=== PATIENT | male | born 1950 | race Caucasian/White ===

== ENCOUNTER 2023-11-23 12:41 | Inpatient (IN) | payer MEDICARE ==
[~2023-11-23] VITALS: Ht 180.3 cm; Wt 81.1 kg
[2023-11-23 14:43] LABS: Basophils # (auto) 0.1 10 ^3/uL (0-0.2); Basophils % (auto) 0.5 % (0.0-2.0); Eosinophils # (auto) 0.2 10 ^3/uL (0-0.8); Eosinophils % (auto) 1.3 % (0.0-7.0); Hematocrit 40.7 % (41.0-53.0); Hemoglobin 13.5 g/dL (13.5-17.5); Lymphocytes # (auto) 1.3 10 ^3/uL (0.4-5.4); Lymphocytes % (auto) 10.6 % (10.0-50.0); Mean Corpuscular Hemoglobin 30.5 pg (28.0-32.0); Mean Corpuscular Hgb Conc. 33.2 g/dL (32.0-36.0); Mean Corpuscular Volume 91.7 fL (80.0-100.0); Monocytes % (auto) 7.8 % (0.0-12.0); Neutrophils % (auto) 79.8 % (37.0-80.0); Red Blood Cells 4.44 10^6/uL (4.5-5.90); White Blood Cell 12.5 10^3/uL (4.4-10.8)
[2023-11-23 14:52] LABS: Chloride 105 mmol/L (98-107); Potassium 4.6 mmol/L (3.5-5.1); Sodium 137 mmol/L (136-145)
[2023-11-23 14:53] LABS: Anion Gap 6 (5-15); Carbon Dioxide 26 mmol/L (20-30)
[2023-11-23 14:54] LABS: Calcium 9.2 mg/dL (8.7-10.4)
[2023-11-23 14:58] LABS: BUN/Creatinine Ratio 22.1 (10.0-20.0); Blood Urea Nitrogen 34 mg/dL (9-23); Glucose 110 mg/dL (74-106)
[2023-11-23] MEDS: cloNIDine HCL 0.1 MG TAB PO ONE (18:13)
[2023-11-23] MEDS: ENOXAPARIN SOD 40 MG/0.4 ML SYRINGE SC ONE (18:22)
[2023-11-23 19:01] LABS: Urine Bacteria None Seen /hpf (None Seen)
[2023-11-23 19:25] LABS: Urine Blood Negative /uL (Negative); Urine Clarity Clear (Clear); Urine Color Yellow (Yellow); Urine Hyaline Cast FEW /lpf (0 - 2); Urine Mucus FEW (None Seen); Urine Protein, UAD TRACE (Negative); Urine Specific Gravity 1.025 (1.001-1.035); Urine Urobilinogen Normal (Negative); Urine WBC 9 /hpf (0 - 3)
[2023-11-23] MEDS: HYDROmorphone HCL 2 MG/ML VL/or syr IM ONE (21:03)
[2023-11-23] MEDS ORDERED: ACETAMINOPHEN 325 MG TAB PO PRN (23:15)
[2023-11-23] MEDS ORDERED: ONDANSETRON HCL 4 MG/2 ML VIAL IV PRN (23:15)
[2023-11-24] VITALS (8 sets, daily range): BP systolic 133–156; BP diastolic 86–92; PULSE 59–85; RESP 17–20; TEMP 97.6–98.6; O2SAT 95–99
[2023-11-24] MEDS ORDERED: MORPHINE SULFATE INJ 2 MG/ml SYRG IV PRN
[2023-11-24] MEDS ORDERED: NITROGLYCERIN 0.4 MG SL TAB SL PRN
[2023-11-24] MEDS: HYDROcodone-ACET 5/325MG TAB PO PRN (01:31)
[2023-11-24] MEDS: cefTRIAXone 1GM/50ML D5W 50 ML IV ONE (02:15)
[2023-11-24] MEDS: SODIUM CHLOR 0.9% PF (SALINE LOCK) 10ML VIAL/SYR IV SCH (04:17)
[2023-11-24 07:36] LABS: Basophils # (auto) 0.1 10 ^3/uL (0-0.2); Basophils % (auto) 0.7 % (0.0-2.0); Eosinophils # (auto) 0.3 10 ^3/uL (0-0.8); Hematocrit 37.7 % (41.0-53.0); Hemoglobin 12.8 g/dL (13.5-17.5); Lymphocytes # (auto) 1.8 10 ^3/uL (0.4-5.4); Lymphocytes % (auto) 16.7 % (10.0-50.0); Mean Corpuscular Hemoglobin 31.4 pg (28.0-32.0); Mean Corpuscular Volume 92.3 fL (80.0-100.0); Monocytes # (auto) 1.1 10 ^3/uL (0-1.3); Monocytes % (auto) 10.1 % (0.0-12.0); Neutrophils # (auto) 7.6 10 ^3/uL (1.6-8.6); Neutrophils % (auto) 69.5 % (37.0-80.0); Nucleated Red Blood Cells % 0.1 %; Red Blood Cells 4.08 10^6/uL (4.5-5.90); Red Cell Distribution Width 12.8 % (11.8-14.3); White Blood Cell 10.9 10^3/uL (4.4-10.8)
[2023-11-24 07:46] LABS: Alanine Aminotransferase 15 U/L (7-40); Albumin 3.9 g/dL (3.2-4.8); Alkaline Phosphatase 65 U/L (46-116); Anion Gap 10 (5-15); Aspartate Aminotransferase 25 U/L (13-40); BUN/Creatinine Ratio 19.3 (10.0-20.0); Blood Urea Nitrogen 28 mg/dL (9-23); Calcium 9.1 mg/dL (8.5-10.1); Carbon Dioxide 23 mmol/L (20-30); Chloride 102 mmol/L (98-107); Glucose 98 mg/dL (74-106); Potassium 4.5 mmol/L (3.5-5.1); Sodium 135 mmol/L (136-145)
[2023-11-24 07:47] LABS: Bilirubin, Total 0.5 mg/dL (0.2-1.0); Total Protein 5.9 g/dL (5.7-8.2)
[2023-11-24] MEDS ORDERED: CHLO0.12 PO (07:53)
[2023-11-24] MEDS ORDERED: AMLO1TAB22 PO (07:53)
[2023-11-24] MEDS ORDERED: HYDR50TA47 PO (07:53)
[2023-11-24] MEDS ORDERED: BACL10TA PO (07:53)
[2023-11-24] MEDS ORDERED: ROSU20TA56 PO (07:53)
[2023-11-24] MEDS ORDERED: RIV20T PO (07:53)
[2023-11-24] MEDS ORDERED: OLME40TA76 PO (07:53)
[2023-11-24] MEDS ORDERED: METO25TA93 PO (07:53)
[2023-11-24] MEDS ORDERED: NIFE1TAB31 PO ×2 (07:53)
[2023-11-24] MEDS ORDERED: TRAZ-227 PO (07:53)
[2023-11-24] MEDS ORDERED: SPIR25TA8 PO (07:53)
[2023-11-24] MEDS ORDERED: HYD1TP TOP (09:24)
[2023-11-24] MEDS ORDERED: CEFD300C2 PO (09:24)
[2023-11-24] MEDS ORDERED: APIXABAN 5 MG TAB PO SCH (10:00)
[2023-11-24] MEDS: FAMOTIDINE (10MG/ML) 2ML VL IV SCH (10:00)
[2023-11-24] MEDS: METOPROLOL TARTRATE 25 MG TAB PO SCH (10:00)
[2023-11-24] MEDS: SPIRONOLACTONE 25 MG TAB PO SCH (10:15)
[2023-11-24] MEDS: cefTRIAXone 1GM/50ML D5W 50 ML IV SCH (11:25)
[2023-11-24] MEDS: hydrALAZINE HCL 20 MG/ML VL IV PRN (12:25)
[2023-11-24] MEDS: hydrALAZINE HCL 25 MG TAB PO SCH (21:46)
[2023-11-24] MEDS: amLODIPine BESYLATE 5 MG TAB PO SCH (21:46)
[2023-11-24] MEDS: ATORVASTATIN 20 MG TAB PO SCH (21:46)
[2023-11-24] MEDS: BACLOFEN 10 MG TAB PO SCH (21:46)
[2023-11-24] MEDS: traZODone HCL 50 MG TAB PO SCH (21:47)
[2023-11-25] VITALS (8 sets, daily range): BP systolic 102–155; BP diastolic 51–90; PULSE 57–98; RESP 17–20; TEMP 97.1–98.2; O2SAT 93–99
[2023-11-25 07:04] LABS: Basophils # (auto) 0.1 10 ^3/uL (0-0.2); Basophils % (auto) 0.7 % (0.0-2.0); Eosinophils # (auto) 0.3 10 ^3/uL (0-0.8); Eosinophils % (auto) 3.4 % (0.0-7.0); Hematocrit 38.2 % (41.0-53.0); Hemoglobin 13.1 g/dL (13.5-17.5); Lymphocytes # (auto) 1.6 10 ^3/uL (0.4-5.4); Lymphocytes % (auto) 17.3 % (10.0-50.0); Mean Corpuscular Hemoglobin 31.1 pg (28.0-32.0); Mean Corpuscular Hgb Conc. 34.2 g/dL (32.0-36.0); Mean Corpuscular Volume 91.1 fL (80.0-100.0); Monocytes # (auto) 0.8 10 ^3/uL (0-1.3); Monocytes % (auto) 9.3 % (0.0-12.0); Neutrophils # (auto) 6.3 10 ^3/uL (1.6-8.6); Neutrophils % (auto) 69.3 % (37.0-80.0); Nucleated Red Blood Cells % 0.1 %; Red Blood Cells 4.19 10^6/uL (4.5-5.90); Red Cell Distribution Width 12.6 % (11.8-14.3); White Blood Cell 9.1 10^3/uL (4.4-10.8)
[2023-11-25 07:24] LABS: Alanine Aminotransferase 15 U/L (7-40); Albumin 3.9 g/dL (3.2-4.8); Alkaline Phosphatase 66 U/L (46-116); Anion Gap 9 (5-15); Aspartate Aminotransferase 24 U/L (13-40); BUN/Creatinine Ratio 17.3 (10.0-20.0); Blood Urea Nitrogen 24 mg/dL (9-23); Calcium 9.1 mg/dL (8.5-10.1); Carbon Dioxide 25 mmol/L (20-30); Chloride 103 mmol/L (98-107); Glucose 93 mg/dL (74-106); Potassium 4.7 mmol/L (3.5-5.1); Sodium 137 mmol/L (136-145)
[2023-11-25 07:25] LABS: Bilirubin, Total 0.6 mg/dL (0.2-1.0); Total Protein 6.3 g/dL (5.7-8.2)
[2023-11-25] MEDS: SPIRONOLACTONE 25 MG TAB PO SCH (10:23)
[2023-11-25] MEDS: RIVAROXABAN 20 MG TAB PO SCH (10:36)
[2023-11-25] MEDS: OXYCODONE W/ ACETAMINOPHEN 5/325MG TABLET PO PRN (13:41)
[2023-11-25] MEDS: NIFEdipine ER 30 MG TAB PO ONE (13:42)
[2023-11-26 01:00] VITALS: BP 112/67; PULSE 57; RESP 16; TEMP 97.8; O2SAT 96
[2023-11-26 05:00] VITALS: BP 141/85; PULSE 66; RESP 17; TEMP 98; O2SAT 98
[2023-11-26] MEDS: DOCUSATE SOD 100 MG CAP PO PRN (05:22)
[2023-11-26 08:00] VITALS: PULSE 62; PULSE 64; RESP 16; O2SAT 97
[2023-11-26 08:06] LABS: PSA Free 1.94 ng/mL; Prostate Specific Antigen 10.1 ng/mL (0.0-4.0)
[2023-11-26 09:00] VITALS: BP 126/90; PULSE 64; RESP 16; TEMP 98.3; O2SAT 97
[2023-11-26 09:31] LABS: Chloride 104 mmol/L (98-107); Potassium 4.7 mmol/L (3.5-5.1); Sodium 137 mmol/L (136-145)
[2023-11-26 09:32] LABS: Anion Gap 5 (5-15); Carbon Dioxide 28 mmol/L (20-30)
[2023-11-26 09:33] LABS: Calcium 9.2 mg/dL (8.5-10.1)
[2023-11-26] MEDS: NIFEdipine ER 30 MG TAB PO SCH (09:34)
[2023-11-26 09:37] LABS: BUN/Creatinine Ratio 15.3 (10.0-20.0); Blood Urea Nitrogen 22 mg/dL (9-23); Glucose 93 mg/dL (74-106)
[2023-11-26 09:45] LABS: Basophils # (auto) 0.1 10 ^3/uL (0-0.2); Basophils % (auto) 0.8 % (0.0-2.0); Eosinophils # (auto) 0.3 10 ^3/uL (0-0.8); Eosinophils % (auto) 2.6 % (0.0-7.0); Hematocrit 38.2 % (41.0-53.0); Lymphocytes # (auto) 1.3 10 ^3/uL (0.4-5.4); Lymphocytes % (auto) 13.5 % (10.0-50.0); Mean Corpuscular Hemoglobin 31.1 pg (28.0-32.0); Mean Corpuscular Volume 91.6 fL (80.0-100.0); Monocytes # (auto) 0.8 10 ^3/uL (0-1.3); Monocytes % (auto) 7.9 % (0.0-12.0); Neutrophils # (auto) 7.4 10 ^3/uL (1.6-8.6); Neutrophils % (auto) 75.2 % (37.0-80.0); Red Blood Cells 4.17 10^6/uL (4.5-5.90); Red Cell Distribution Width 12.7 % (11.8-14.3); White Blood Cell 9.9 10^3/uL (4.4-10.8)
[2023-11-26 11:47] VITALS: BP 121/75; PULSE 58; RESP 17; TEMP 97.8; O2SAT 98
[2023-11-26 13:00] VITALS: BP 132/87; PULSE 59; RESP 16; TEMP 97.8; O2SAT 99
== END 2023-11-26 13:15 | disposition home or self-care (01) | DRG 304 ==
LOC: ER 12:41 → TELE 23:59 → TELE-CENTR 11-24 04:30
PROVIDERS: ADMIT Nurse Practitioner Family; ATTEND Internal Medicine
DX: I16.0 Hypertensive urgency (principal); N17.0 Acute kidney failure with tubular necrosis; N13.0 Hydronephrosis with ureteropelvic junction obstruction; D68.69 Other thrombophilia; I48.20 Chronic atrial fibrillation, unspecified; R79.89 Other specified abnormal findings of blood chemistry; N20.0 Calculus of kidney; N28.1 Cyst of kidney, acquired; D64.9 Anemia, unspecified; N18.30 Chronic kidney disease, stage 3 unspecified; I12.9 Hypertensive chronic kidney disease with stage 1 through stage 4 chronic kidney disease, or unspecified chronic kidney disease; E78.5 Hyperlipidemia, unspecified; N40.0 Benign prostatic hyperplasia without lower urinary tract symptoms; Z79.01 Long term (current) use of anticoagulants; Z79.899 Other long term (current) drug therapy
CPT/HCPCS: 36415; 74176; 80048; 80053; 81001; 82550; 84154; 84484; 85025; 85379; 87081; 87086; 93005; 96372; G0378; J3490

== ENCOUNTER 2024-08-29 11:05 | Inpatient (IN) | payer MEDICARE ==
[~2024-08-29] VITALS: Ht 180.3 cm; Wt 84.0 kg
[~2024-08-29 11:05] MED LIST: AMLO1TAB22 PO; BACL10TA PO; CEFD300C2 PO; CHLO0.12 PO; HYD1TP TOP; HYDR50TA47 PO; METO25TA93 PO; NIFE1TAB31 PO; OLME40TA76 PO; RIV20T PO; ROSU20TA56 PO; SPIR25TA8 PO; TRAZ-227 PO
--- NOTE | 2024-08-29 11:20 | ECG ---
[facility] Test Date: 2024-08-29 Test Time: 11:16:08 Pat Name: FREDRICK PARK Department: ER Room: 0251T Gender: M Teletype Adjuster: JEAN CARLOS : 1950 Requested By: KYLAH CULVER Order Number: [id number] Reading MD: Masoud Henriquez Measurements Intervals [place] Rate: 85 P: 71 [place]: 163 QRS: 46 QRSD: 127 T: 27 QT: 410 QTc: 488 Interpretive Statements Sinus rhythm Nonspecific intraventricular conduction delay Electronically Signed On 09-02-2024 8:48:00 PST by Masoud Henriquez Please click the below link to view image of tracing.
--- NOTE | 2024-08-29 11:26 | ED.PDOC ---
History of Present Illness HPI Comments 74-year-old male with PMHx A-FIB, HTN presents with a chief complaint of blurred vision, ear ringing, and lightheadedness. Patient states that his 'BP is high", however he reports that he has been compliant with his HTN medication. Patient denies any increase in stress recently. Patient denies any active chest pain at this time. Time Seen by MD: 11:20 Primary Care Provider: BUFFY Villanueva Notes: Medications, Allergies Allergies: Coded Allergies: NO KNOWN ALLERGIES (Unverified , 11/23/23) Home Meds Reported Medications Cefdinir (Cefdinir) 300 Mg Cap, 1 CAP PO BID 11/24/23 Hydrocortone (Hydrocortisone 1%) 1 Applic Ap, TOP 11/24/23 Nifedipine (Nifedipine Er) 30 Mg Tab, 1 TAB PO HS, TAB 11/24/23 Chlorhexidine Gluconate (Chlorhexidine Gluconate) 0.12 % Devi, 0.5 PO BID 11/24/23 Amlodipine Besylate (Amlodipine Besylate) 5 Mg Tab, 1 TAB PO BID 11/24/23 Rivaroxaban (Xarelto Tablet) 20 Mg Tb, 1 TAB PO DAILY 11/24/23 Trazodone Hcl (Trazodone Hcl) 50 Mg Tab, 0.5 TAB PO QHSP 11/24/23 Baclofen (Baclofen) 10 Mg Tab, 1 TAB PO TID 11/24/23 Metoprolol Succinate (Metoprolol Succinate Er) 25 Mg Tab, 1 TAB PO BID 11/24/23 Rosuvastatin Calcium (Rosuvastatin Calcium) 20 Mg Tab, 1 TAB PO DAILY 11/24/23 Spironolactone (Spironolactone) 25 Mg Tab, 1 TAB PO DAILY 11/24/23 Hydralazine Hcl (Hydralazine Hcl) 50 Mg Tab, 1 TAB PO BID 11/24/23 Olmesartan Medoxomil (Olmesartan Medoxomil) 40 Mg Tab, TAB PO 11/24/23 Nifedipine (Nifedipine Er) 30 Mg Tab, 2 TAB PO QAM 11/24/23 Information Source: Patient Mode of Arrival: Ambulatory Severity: Moderate Timing: Days Duration: Since onset Prehospital treatment: None Past Medical History PAST MEDICAL HISTORY: AFIB, HTN Surgical History: Denies all surgeries Family History Family History: Unknown Social History Smoker: Non-Smoker Alcohol: Denies ETOH Use Drugs: Denies Drug Use Lives In: Home Constitutional: denies: chills, diaphoresis, fatigue, fever, malaise, sweats, weakness, others EENTM: reports: blurred vision, ear ringing; denies: double vision, ear bleeding, ear discharge, ear drainage, ear pain, eye pain, eye redness, hearing loss, mouth pain, mouth swelling, nasal discharge, nose bleeding, nose congestion, nose pain, photophobia, tearing, throat pain, throat swelling, voice changes, others Respiratory: denies: cough, hemoptysis, orthopnea, SOB at rest, shortness of breath, SOB with excertion, stridor, wheezing, others Cardiovascular: reports: lightheadedness; denies: chest pain, dizzy spells, diaphoresis, Dyspnea on exertion, edema, irregular heart beat, left arm pain, palpitations, PND, syncope, others Gastrointestinal: denies: abdomen distended, abdominal pain, blood streaked bowels, constipated, diarrhea, dysphagia, difficulty swallowing, hematemesis, melena, nausea, poor appetite, poor fluid intake, rectal bleeding, rectal pain, vomiting, others Genitourinary: denies: burning, dysuria, flank pain, frequency, hematuria, incontinence, penile discharge, penile sore, pain, testicle pain, testicle swelling, urgency, others Neurological: denies: dizziness, fainting, headache, left sided numbness, left sided weakness, numbness, paresthesia, pre-existing deficit, right sided numbness, right sided weakness, seizure, speech problems, tingling, tremors, weakness, others Musculoskeletal: denies: back pain, gout, joint pain, joint swelling, muscle pain, muscle stiffness, neck pain, others Integumetry: denies: bruises, change in color, change in hair/nails, dryness, laceration, lesions, lumps, rash, wounds, others Allergic/Immunocompromised: denies: Difficulty Healing, Frequent Infections, Hives, Itching, others Hematologic/Lymphatic: denies: anemia, blood clots, easy bleeding, easy bruising, swollen glands, others Endocrine: denies: excessive hunger, excessive sweating, excessive thirst, excessive urination, flushing, intolerance to cold, intolerance to heat, unexplained weight gain, unexplained weight loss, others Psychiatric: denies: anxiety, bipolar disorder, depression, hopeless, panic disorder, schizophrenia, sleepless, suicidal, others All Other Systems: Reviewed and Negative Physical Exam General Appearance: No Apparent Distress, Normal HEENT: Normal ENT Inspection, Pharynx Normal, TMs Normal Neck: Full Range of Motion, Non-Tender, Normal, Normal Inspection Respiratory: Chest Non-Tender, Lungs Clear, No Accessory Muscle Use, No Respiratory Distress, Normal Breath Sounds Cardiovascular: No Edema, No JVD, No Murmur, No Gallop, Normal Peripheral Pulses, Regular Rate/Rhythm Breast Exam: Deferred Gastrointestinal: No Organomegaly, Non Tender, No Pulsatile Mass, Normal Bowel Sounds, Soft Genitalia: Deferred Pelvic: Deferred Rectal: Deferred Extremities: No calf tenderness, Normal capillary refill, Normal inspection, Normal range of motion, Non-tender, No pedal edema Musculoskeletal : Apperance: Normal Neurologic: Alert, welder/fitter II-XII nml as Tested, No Motor Deficits, Normal Affect, Normal Mood, No Sensory Deficits Cerebellar Function: Normal Reflexes: Normal Skin: Dry, Normal Color, Warm Lymphatic: No Adenopathy Was a procedure done? Was a procedure done?: No EKG EKG : Pulse Rate (adult): 85 [place]: Normal Cardiac Rhythm: NSR Block: None Hypertrophy: None ST: Normal Differential Dx Considerations may include: HYPERTENSIVE URGENCY, HYPERTENSION, FLU-LIKE SYMPTOMS, COUGH, LIGHTHEADEDNESS X-Ray, Labs, Meds, VS Vital Signs Date Time Temp Pulse Resp B/P (MAP) Pulse Ox O2 Delivery O2 Flow Rate FiO2 08/29/24 14:30 147/97 08/29/24 14:28 Room Air* 0 21 08/29/24 13:49 97.7 81 16 154/99 (117) 97 97.7 08/29/24 11:57 97.7 95 18 182/118 (139) 97 08/29/24 11:26 85 08/29/24 11:16 85 Lab Test 08/29/24 11:37 Range/Units White Blood Count 9.2 4.4-10.8 10^3/uL Red Blood Count 5.09 4.5-5.90 10^6/uL Hemoglobin 15.9 13.5-17.5 g/dL Hematocrit 46.8 41.0-53.0 % Mean Corpuscular Volume 92.0 80.0-100.0 fL Mean Corpuscular Hemoglobin 31.2 28.0-32.0 pg Mean Corpuscular Hemoglobin Concent 33.9 32.0-36.0 g/dL Red Cell Distribution Width 13.6 11.8-14.3 % Platelet Count 182 140-450 10^3/uL Mean Platelet Volume 8.8 6.9-10.8 fL Neutrophils (%) (Auto) 80.7 H 37.0-80.0 % Lymphocytes (%) (Auto) 10.0 10.0-50.0 % Monocytes (%) (Auto) 7.1 0.0-12.0 % Eosinophils (%) (Auto) 1.6 0.0-7.0 % Basophils (%) (Auto) 0.6 0.0-2.0 % Neutrophils # (Auto) 7.5 1.6-8.6 10 ^3/uL Lymphocytes # (Auto) 0.9 0.4-5.4 10 ^3/uL Monocytes # (Auto) 0.7 0-1.3 10 ^3/uL Eosinophils # (Auto) 0.1 0-0.8 10 ^3/uL Basophils # (Auto) 0.1 0-0.2 10 ^3/uL Nucleated Red Blood Cells 0.0 % Sodium Level 134 L 136-145 mmol/L Potassium Level 3.7 3.5-5.1 mmol/L Chloride Level 102 98-107 mmol/L Carbon Dioxide Level 20 20-31 mmol/L Anion Gap 12 5-15 Blood Urea Nitrogen 15 9-23 mg/dL Creatinine 1.31 H 0.700-1.30 mg/dL Glomerular Filtration Rate Calc 57 >90 mL/min BUN/Creatinine Ratio 11.5 10.0-20.0 Serum Glucose 113 H 74-106 mg/dL Calcium Level 9.3 8.7-10.4 mg/dL Total Bilirubin 0.5 0.2-1.0 mg/dL Aspartate Amino Transferase (AST) 22 13-40 U/L Alanine Aminotransferase (ALT) 21 7-40 U/L Alkaline Phosphatase 73 46-116 U/L Total Protein 6.9 5.7-8.2 g/dL Albumin 4.6 3.2-4.8 g/dL 74-year-old male presents here with high blood pressure blurry vision dizziness ringing in the ears. Patient states he woke up this morning in his blood pressure was 235/128. He states he woke up at that time with blurry vision and dizziness, ringing in the ears. He states he took his normal hydralazine and olmesartan however he continued to have high blood pressure. To continue to remain high so he took a 2nd dose of both hydralazine and olmesartan. Soon after continued to remain high and he took a 3rd dose of olmesartan and hydralazine. Although it had improved from 235/128 he states it was still in the 160s over 109. At that time patient presented to the ER. On my evaluation for agitation continued to report dizziness and blurry vision both eyes. Given he had taken triple the dose of his normal antihypertensives, no additional medications was initially given by myself and patient was observed. I was concerned if I would drop his blood pressure too fast he will have a stroke. After several hours of observation blood pressure continue remain in the 160s over 109. At that time I have wrote for hydralazine 2.5 mg IV. However when nurse was going to give it, blood pressure at that time had improved. He does state that the ringing in the ears in the blurry vision and dizziness have improved from before but still present. Therefore additional antihypertensives have not been given at this time. However I do feel the patient would benefit from inpatient admission and evaluation of his blood pressure and continue to monitor improvements in his dizziness and blurry vision. At this time hospitalist team as has been consulted for admission. Blood work has been done which demonstrates a normal CBC, CMP does demonstrate elevated creatinine of 1.31. Patient does state he has had 7 days of diarrhea therefore I gave him IV fluids in the ER. Time of 1ST Reevaluation: 11:50 Reevaluation 1ST: Unchanged Patient Education/Counseling: Diagnosis, Treatment, Prognosis Family Education/Counseling: Diagnosis, Treatment, Prognosis Departure 1 Departure Time of Disposition: 13:20 Impression: Primary Impression: Hypertensive emergency Additional Impressions: Acute renal injury Dehydration Disposition: ADMITTED INPATIENT Condition: Guarded Critical Care Note Critical Care Time?: No Stability Stability form required: No I personally scribed for KYLAH CULVER MD ([email or web address]) on 08/29/24 at 11:26. Electronically submitted by Yogi [email or web address]). KYLAH CULVER MD Aug 29, 2024 11:26
[2024-08-29 12:15] LABS: Basophils # (auto) 0.1 10 ^3/uL (0-0.2); Basophils % (auto) 0.6 % (0.0-2.0); Eosinophils # (auto) 0.1 10 ^3/uL (0-0.8); Eosinophils % (auto) 1.6 % (0.0-7.0); Hematocrit 46.8 % (41.0-53.0); Hemoglobin 15.9 g/dL (13.5-17.5); Lymphocytes # (auto) 0.9 10 ^3/uL (0.4-5.4); Mean Corpuscular Hemoglobin 31.2 pg (28.0-32.0); Mean Corpuscular Hgb Conc. 33.9 g/dL (32.0-36.0); Monocytes # (auto) 0.7 10 ^3/uL (0-1.3); Monocytes % (auto) 7.1 % (0.0-12.0); Neutrophils # (auto) 7.5 10 ^3/uL (1.6-8.6); Neutrophils % (auto) 80.7 % (37.0-80.0); Platelet Count (auto) 182 10^3/uL (140-450); Red Blood Cells 5.09 10^6/uL (4.5-5.90); Red Cell Distribution Width 13.6 % (11.8-14.3); White Blood Cell 9.2 10^3/uL (4.4-10.8)
[2024-08-29 12:28] LABS: Alanine Aminotransferase 21 U/L (7-40); Albumin 4.6 g/dL (3.2-4.8); Alkaline Phosphatase 73 U/L (46-116); Anion Gap 12 (5-15); Aspartate Aminotransferase 22 U/L (13-40); BUN/Creatinine Ratio 11.5 (10.0-20.0); Blood Urea Nitrogen 15 mg/dL (9-23); Calcium 9.3 mg/dL (8.7-10.4); Chloride 102 mmol/L (98-107); Potassium 3.7 mmol/L (3.5-5.1)
[2024-08-29 12:29] LABS: Bilirubin, Total 0.5 mg/dL (0.2-1.0); Carbon Dioxide 20 mmol/L (20-31); Glucose 113 mg/dL (74-106); Sodium 134 mmol/L (136-145); Total Protein 6.9 g/dL (5.7-8.2)
[2024-08-29] MEDS: hydrALAZINE HCL 20 MG/ML VL IV ONE (14:30)
[2024-08-29] MEDS: SODIUM CHLORIDE 0.9% 500 ML IV ONE (15:44)
[2024-08-29] MEDS: hydrALAZINE HCL 25 MG TAB ONE (20:07)
[2024-08-29] MEDS: hydrALAZINE HCL 25 MG TAB PO ONE (20:10)
[2024-08-29] MEDS ORDERED: HYDROcodone-ACET 5/325MG TAB PO PRN (21:30)
[2024-08-29] MEDS ORDERED: DOCUSATE SOD 100 MG CAP PO PRN (21:30)
[2024-08-29] MEDS ORDERED: ACETAMINOPHEN 325 MG TAB PO PRN (21:30)
[2024-08-29] MEDS ORDERED: ONDANSETRON HCL 4 MG/2 ML VIAL IV PRN (21:30)
[2024-08-29] MEDS: METOPROLOL TARTRATE 50 MG TAB PO SCH (22:00)
[2024-08-29] MEDS: RIVAROXABAN 20 MG TAB PO ONE ×2 (22:13→22:14)
[2024-08-29] MEDS: amLODIPine BESYLATE 5 MG TAB PO ONE (22:14)
--- NOTE | 2024-08-29 22:38 | DVHHP2 ---
History of Present Illness Reason for Visit: Hypertensive emergency History of Present Illness The patient is a 74-year-old male with past medical history of AFib, hypertension, and hyperlipidemia who presented to [facility] ED for evaluation of elevated blood pressure. Patient reports having lightheadedness, ear ringing, blurred vision, getting worse today that prompted this visit. Patient was seen and evaluated in the ED, laboratory data shows WBC 9.2, platelets 182, sodium 134, potassium 3.7, BUN 15, creatinine 1.37, glucose 113, blood pressure 182/118 trending down to 159/99, heart rate 95, temperature 97.7 F, O2 saturation 97% on room air. Please see medication orders section in the c omputer. On my assessment, patient denied chest pain, no dizziness, no headache, no diaphoresis, no shortness of breaths, no nausea, no vomiting, no fever, no chills. Patient was admitted for further evaluation and medical management. Past Medical History AFIB, HTN, HLD Past Surgical History Denies all surgeries Family History Reviewed, noncontributory to the management of this case. Past Social History The patient lives at home, denies smoking, alcohol or illicit drugs abuse. Review of Systems Constitutional: No: Fever, Chills, Sweats, Weakness, Malaise, Other Eyes: Other (Blurred vision); No: Pain, Vision change, Conjunctivae inflammation, Eyelid inflammation, Redness ENT: Other (Ear ringing); No: Ear pain, Ear discharge, Nose pain, Nose discharge, Nose congestion, Mouth pain, Mouth swelling, Throat pain, Throat swelling Respiratory: No: Cough, Dry, Shortness of breath, SOB with excertion, Wheezing, Hemoptysis, Pleuritic Pain, Sputum, Wheezing, Other Cardiovascular: Lt Headedness; No: Chest Pain, Palpitations, Orthopnea, Paroxysmal Noc. Dyspnea, Edema, Other Gastrointestinal: No: Nausea, Vomiting, Abdominal Pain, Diarrhea, Constipation, Melena, Hematochezia, Other Genitourinary: No Dysuria, No Frequency, No Incontinence, No Hematuria, No Retention, No Other Musculoskeletal: No: other, neck pain, shoulder pain, arm pain, back pain, hand pain, leg pain, foot pain Skin: No: Rash, Lesions, Jaundice, Bruising, Other Neurological: No: Weakness, Numbness, Incoordination, Change in speech, Confusion, Seizures, Other Allergies: Coded Allergies: NO KNOWN ALLERGIES (Unverified , 11/23/23) Medications Current Medications Medications Dose Ordered Sig/Cristy Route Start Time Stop Time Status Last Admin Dose Admin Rivaroxaban 20 mg QPM PO 08/30/24 18:00 Amlodipine Besylate 5 mg DAILY PO 08/30/24 10:00 Hydralazine HCl 10 mg Q6HP PRN IV 08/29/24 21:30 Metoprolol Tartrate 50 mg BID PO 08/29/24 22:00 Sodium Chloride 1,000 ml @ 60 mls/hr [id number] IV 08/29/24 21:30 Acetaminophen/ Hydrocodone Bitart 1 tab Q4HP PRN PO 08/29/24 21:30 Ondansetron HCl 4 mg Q4HP PRN IV 08/29/24 21:30 Docusate Sodium 100 mg BIDPRN PRN PO 08/29/24 21:30 Acetaminophen 650 mg Q6HP PRN PO 08/29/24 21:30 Exam Vital Signs Vital Signs Date Time Temp Pulse Resp B/P (MAP) Pulse Ox O2 Delivery O2 Flow Rate FiO2 08/29/24 22:14 141/103 08/29/24 22:00 84 08/29/24 19:35 Room Air* 0 21 08/29/24 19:25 98.6 18 96 98.6 General Appearance: Alert, Oriented X3, Cooperative, No acute distress HEENT: Atraumatic, PERRLA, EOMI, Mucous membr. moist/pink Cardiovascular: Regular rate, Normal S1, Normal S2, No murmurs Abdominal: Normal bowel sounds, Soft, No tenderness, No hepatospenomegaly, No masses Extremities: No clubbing, No cyanosis, No edema, Normal pulses, No tenderness/swelling Skin: No rashes, No breakdown, No significant lesion Neuro: Normal gait, Normal speech, Strength at 5/5 X4 ext, Normal tone, Sensation intact, Cranial nerves 3-12 NL, Reflexes 2+ Psych/Mental Status: Mental status NL, Mood NL Labs/Xrays Labs Test 08/29/24 11:37 Range/Units White Blood Count 9.2 4.4-10.8 10^3/uL Red Blood Count 5.09 4.5-5.90 10^6/uL Hemoglobin 15.9 13.5-17.5 g/dL Hematocrit 46.8 41.0-53.0 % Mean Corpuscular Volume 92.0 80.0-100.0 fL Mean Corpuscular Hemoglobin 31.2 28.0-32.0 pg Mean Corpuscular Hemoglobin Concent 33.9 32.0-36.0 g/dL Red Cell Distribution Width 13.6 11.8-14.3 % Platelet Count 182 140-450 10^3/uL Mean Platelet Volume 8.8 6.9-10.8 fL Neutrophils (%) (Auto) 80.7 H 37.0-80.0 % Lymphocytes (%) (Auto) 10.0 10.0-50.0 % Monocytes (%) (Auto) 7.1 0.0-12.0 % Eosinophils (%) (Auto) 1.6 0.0-7.0 % Basophils (%) (Auto) 0.6 0.0-2.0 % Neutrophils # (Auto) 7.5 1.6-8.6 10 ^3/uL Lymphocytes # (Auto) 0.9 0.4-5.4 10 ^3/uL Monocytes # (Auto) 0.7 0-1.3 10 ^3/uL Eosinophils # (Auto) 0.1 0-0.8 10 ^3/uL Basophils # (Auto) 0.1 0-0.2 10 ^3/uL Nucleated Red Blood Cells 0.0 % Sodium Level 134 L 136-145 mmol/L Potassium Level 3.7 3.5-5.1 mmol/L Chloride Level 102 98-107 mmol/L Carbon Dioxide Level 20 20-31 mmol/L Anion Gap 12 5-15 Blood Urea Nitrogen 15 9-23 mg/dL Creatinine 1.31 H 0.700-1.30 mg/dL Glomerular Filtration Rate Calc 57 >90 mL/min BUN/Creatinine Ratio 11.5 10.0-20.0 Serum Glucose 113 H 74-106 mg/dL Calcium Level 9.3 8.7-10.4 mg/dL Total Bilirubin 0.5 0.2-1.0 mg/dL Aspartate Amino Transferase (AST) 22 13-40 U/L Alanine Aminotransferase (ALT) 21 7-40 U/L Alkaline Phosphatase 73 46-116 U/L Total Protein 6.9 5.7-8.2 g/dL Albumin 4.6 3.2-4.8 g/dL Assessment/Plan Assessment/Plan Hypertensive emergency Dehydration Acute renal injury Plan 1. Admit to telemetry unit 2. Breathing treatment 3. Pain control management 4. Management of fluids and electrolytes 5. Consultation for hospitalist 6. Diagnostic tests chest x-ray 7. DVT prophylaxis-on Xarelto 8. Repeat labs CBC, CMP in a.m. 9. Continue with current medical management 10. Treatment plan discussed with patient and RN. Patient verbalized understanding. Plan discussed with: Patient, Other (RN) My Orders Orders - FADIA PACKER DNP Procedure Category Date Status Time Amlodipine Tablet PHA 08/30/24 In Process (Norvasc Tablet) 10:00 Hydralazine Injection PHA 08/29/24 In Process (Apresoline Inject 21:30 Metoprolol Tartrate PHA 08/29/24 In Process Tablet (Lopressor Ta 22:00 Allergies ALONSO 08/29/24 In Process 21:23 Code Status CODE 08/29/24 Transmitted 21:23 Sodium Chloride 0.9% PHA 08/29/24 In Process 21:30 Oxygen Per Hour RT 08/29/24 Transmitted 21:23 Hydrocodone-Acet PHA 08/29/24 In Process 5/325mg Tab ([place] 21:30 Ondansetron Hcl PHA 08/29/24 In Process (Zofran) 21:30 Docusate Sodium PHA 08/29/24 In Process Capsule (Colace 21:30 Complete Blood Count LAB 08/30/24 Verified 04:00 Comprehensive LAB 08/30/24 Verified Metabolic Panel 04:00 Cardiac DIET 08/30/24 Transmitted Diet-2gna,Lofat,Lochol Breakfast Condition: Serious ALONSO 08/29/24 In Process 21:23 Acetaminophen Tablet PHA 08/29/24 In Process (Tylenol Tablet) 21:30 Bedrest With Bathroom ALONSO 08/29/24 In Process Privileg 21:23 Sequential ALONSO 08/29/24 In Process Compression Device Problem List: (1) Hypertensive emergency (2) Dehydration (3) Acute renal injury Date of Service: Aug 29, 2024 Billing Provider: FADIA PACKER DNP Common Visit Codes: [id number] INP/OBS CARE (HIGH) FADIA PACKER DNP Aug 29, 2024 22:38
[2024-08-29] MEDS ORDERED: MORPHINE SULFATE INJ 2 MG/ml SYRG IV PRN (22:45)
[2024-08-29] MEDS ORDERED: NITROGLYCERIN 0.4 MG SL TAB SL PRN (22:45)
[2024-08-29] MEDS: SODIUM CHLORIDE 0.9% 1,000 ML IV SCH (23:37)
[2024-08-29] MEDS: hydrALAZINE HCL 20 MG/ML VL IV PRN (23:37)
[2024-08-29 23:48] VITALS: O2SAT 96
[2024-08-30] VITALS (7 sets, daily range): BP systolic 128–156; BP diastolic 61–99; PULSE 61–82; RESP 16–19; TEMP 97.5–98.3; O2SAT 95–98
[2024-08-30 06:53] LABS: Basophils # (auto) 0 10 ^3/uL (0-0.2); Basophils % (auto) 0.5 % (0.0-2.0); Eosinophils # (auto) 0.2 10 ^3/uL (0-0.8); Eosinophils % (auto) 2.9 % (0.0-7.0); Hematocrit 42.5 % (41.0-53.0); Hemoglobin 14.6 g/dL (13.5-17.5); Lymphocytes # (auto) 1.2 10 ^3/uL (0.4-5.4); Lymphocytes % (auto) 14.2 % (10.0-50.0); Mean Corpuscular Hemoglobin 31.1 pg (28.0-32.0); Mean Corpuscular Hgb Conc. 34.2 g/dL (32.0-36.0); Monocytes # (auto) 0.9 10 ^3/uL (0-1.3); Neutrophils # (auto) 6.1 10 ^3/uL (1.6-8.6); Neutrophils % (auto) 71.4 % (37.0-80.0); Nucleated Red Blood Cells % 0.1 %; Platelet Count (auto) 173 10^3/uL (140-450); Red Blood Cells 4.68 10^6/uL (4.5-5.90); Red Cell Distribution Width 13.8 % (11.8-14.3); White Blood Cell 8.5 10^3/uL (4.4-10.8)
[2024-08-30 07:10] LABS: Alanine Aminotransferase 15 U/L (7-40); Albumin 4.2 g/dL (3.2-4.8); Alkaline Phosphatase 63 U/L (46-116); Anion Gap 9 (5-15); Aspartate Aminotransferase 22 U/L (13-40); BUN/Creatinine Ratio 12.7 (10.0-20.0); Blood Urea Nitrogen 17 mg/dL (9-23); Calcium 9.3 mg/dL (8.7-10.4); Carbon Dioxide 23 mmol/L (20-31); Chloride 107 mmol/L (98-107); Potassium 4.4 mmol/L (3.5-5.1); Sodium 139 mmol/L (136-145); Total Protein 6.2 g/dL (5.7-8.2)
[2024-08-30 07:11] LABS: Bilirubin, Total 0.6 mg/dL (0.2-1.0); Glucose 101 mg/dL (74-106)
[2024-08-30] MEDS: amLODIPine BESYLATE 5 MG TAB PO SCH (11:13)
--- NOTE | 2024-08-30 14:28 | DVHPN2 ---
Reviewed: Care Plan, H&P, Labs, Medications, Previous Orders, Radiology Changes from previous H/P or p: No Changes Eyes: No Pain, No Vision change, No Conjunctivae inflammation, No Eyelid inflammation; Other (Blurred vision); No Redness ENT: No Ear pain, No Ear discharge, No Nose pain, No Nose discharge, No Nose congestion, No Mouth pain, No Mouth swelling, No Throat pain, No Throat swelling; Other (Ear ringing) Cardiovascular: No Chest Pain, No Palpitations, No Orthopnea, No Paroxysmal Noc. Dyspnea, No Edema; Lt Headedness; No Other Respiratory: No Cough, No Dry, No Shortness of breath, No SOB with excertion, No Wheezing, No Hemoptysis, No Pleuritic Pain, No Sputum, No Other Gastrointestinal: No Nausea, No Vomiting, No Abdominal Pain, No Diarrhea, No Constipation, No Melena, No Hematochezia, No Other Genitourinary: No Dysuria, No Frequency, No Incontinence, No Hematuria, No Retention, No Other Musculoskeletal: No other, No neck pain, No shoulder pain, No arm pain, No back pain, No hand pain, No leg pain, No foot pain Skin: No Rash, No Lesions, No Jaundice, No Bruising, No Other Objective Vitals Vital Signs Date Time Temp Pulse Resp B/P (MAP) Pulse Ox O2 Delivery O2 Flow Rate FiO2 08/30/24 13:00 98.3 69 16 145/99 (114) 98 98.3 08/30/24 08:15 Room Air* 0 21 Intake/Output Intake and Output 08/30/24 07:00 Intake Total 900 ml Balance 900 ml Intake Oral 400 ml IV Total 500 ml # Voids 3 # Bowel Movements 2 Medications Current Medications Medications Dose Ordered Sig/Cristy Route Start Time Stop Time Status Last Admin Dose Admin Rivaroxaban 20 mg QPM PO 08/30/24 18:00 Amlodipine Besylate 5 mg DAILY PO 08/30/24 10:00 08/30/24 11:13 5 MG Hydralazine HCl 10 mg Q6HP PRN IV 08/29/24 21:30 08/29/24 23:37 10 MG Metoprolol Tartrate 50 mg BID PO 08/29/24 22:00 Sodium Chloride 1,000 ml @ 60 mls/hr [id number] IV 08/29/24 21:30 08/29/24 23:37 60 MLS/HR Acetaminophen/ Hydrocodone Bitart 1 tab Q4HP PRN PO 08/29/24 21:30 Ondansetron HCl 4 mg Q4HP PRN IV 08/29/24 21:30 Docusate Sodium 100 mg BIDPRN PRN PO 08/29/24 21:30 Acetaminophen 650 mg Q6HP PRN PO 08/29/24 21:30 Nitroglycerin 0.4 mg Q5MINP PRN SL 08/29/24 22:45 Morphine Sulfate 2 mg Q30M PRN IV 08/29/24 22:45 Laboratory Results Laboratory Tests 08/30/24 06:14 Chemistry Test 08/30/24 06:14 Albumin 4.2 g/dL (3.2-4.8) Calcium Level 9.3 mg/dL (8.7-10.4) Total Protein 6.2 g/dL (5.7-8.2) LFT Test 08/30/24 06:14 Alanine Aminotransferase (ALT) 15 U/L (7-40) Alkaline Phosphatase 63 U/L (46-116) Aspartate Amino Transferase (AST) 22 U/L (13-40) Total Bilirubin 0.6 mg/dL (0.2-1.0) Labs and/or images reviewed: Labs reviewed by me, Image(s) reviewed by me Assessment/Plan Assessment/Plan Accelerated Hypertension 182/118, amlodipine, metoprolol AFib with RVR, Xarelto Hypercholesterolemia: Lipitor Time spent 45 minutes Plan discussed with: Patient Date of Service: Aug 30, 2024 Billing Provider: ADALBERTO RHOADES MD Common Visit Codes: [id number] INP/OBS CARE(HIGH) ADALBERTO RHOADES MD Aug 30, 2024 14:28
--- NOTE | 2024-08-30 17:03 | DVHINCON2 ---
Date Seen: Aug 30, 2024 Referring Physician MD Marty Reason for Consultation Accelerated hypertension History of Present Illness This is a 74-year-old male patient who presents to emergency room with chief complaint of dizziness, blurry vision, and headache. The patient reports having uncontrolled blood pressure for the past four days at home. He reports obtaining systolic blood pressure readings as high as 230. He comes to the emergency room for further evaluation. Initial blood pressure reading was 182/118 in the emergency room. Cardiology has now been consulted for accelerated hypertension. Initial twelve lead electrocardiogram reveals normal sinus rhythm without any significant ST segment changes. The patient denies any cardiac symptoms such as chest pain, shortness of breath, or palpitations. Significant past medical history includes hypertension, dyslipidemia, and atrial fibrillation (on Xarelto). He reports that he follows up with a analysis specialist at [facility] named . Past Medical History Past medical history reviewed. No other significant than mentioned above. Past Surgical History Laminectomy in 2020 Tonsillectomy Family History: Cardiovascular disease G8 MOTHER (A FIB) G8 FATHER (HEART FAILURE) Diabetes mellitus G8 FATHER Family History Family history reviewed. Social History The patient denies any nicotine or tobacco use Patient denies any illicit drug use Patient reports pouring Esme liquor into his coffee approximately 3 times per week Allergies: Coded Allergies: NO KNOWN ALLERGIES (Unverified , 11/23/23) Home Meds Reported Medications Cefdinir (Cefdinir) 300 Mg Cap, 1 CAP PO BID 11/24/23 Hydrocortone (Hydrocortisone 1%) 1 Applic Ap, TOP 11/24/23 Nifedipine (Nifedipine Er) 30 Mg Tab, 1 TAB PO HS, TAB 11/24/23 Chlorhexidine Gluconate (Chlorhexidine Gluconate) 0.12 % Devi, 0.5 PO BID 11/24/23 Amlodipine Besylate (Amlodipine Besylate) 5 Mg Tab, 1 TAB PO BID 11/24/23 Rivaroxaban (Xarelto Tablet) 20 Mg Tb, 1 TAB PO DAILY 11/24/23 Trazodone Hcl (Trazodone Hcl) 50 Mg Tab, 0.5 TAB PO QHSP 11/24/23 Baclofen (Baclofen) 10 Mg Tab, 1 TAB PO TID 11/24/23 Metoprolol Succinate (Metoprolol Succinate Er) 25 Mg Tab, 1 TAB PO BID 11/24/23 Rosuvastatin Calcium (Rosuvastatin Calcium) 20 Mg Tab, 1 TAB PO DAILY 11/24/23 Spironolactone (Spironolactone) 25 Mg Tab, 1 TAB PO DAILY 11/24/23 Hydralazine Hcl (Hydralazine Hcl) 50 Mg Tab, 1 TAB PO BID 11/24/23 Olmesartan Medoxomil (Olmesartan Medoxomil) 40 Mg Tab, TAB PO 11/24/23 Nifedipine (Nifedipine Er) 30 Mg Tab, 2 TAB PO QAM 11/24/23 Home Meds Home medications reviewed. Current Medications Current Medications Medications (Trade) Dose Ordered Sig/Cristy Route PRN Reason Start Time Stop Time Status Last Admin Rivaroxaban (Xarelto Tablet) 20 mg QPM PO 08/30/24 18:00 Amlodipine Besylate (Norvasc Tablet) 5 mg DAILY PO 08/30/24 10:00 08/30/24 11:13 Hydralazine HCl (Apresoline Injection) 10 mg Q6HP PRN IV SBP>150 08/29/24 21:30 08/29/24 23:37 Metoprolol Tartrate (Lopressor Tablet) 50 mg BID PO 08/29/24 22:00 Sodium Chloride 1,000 ml @ 60 mls/hr [id number] IV 08/29/24 21:30 08/29/24 23:37 Acetaminophen/ Hydrocodone Bitart ([place] 5/325MG Tab) 1 tab Q4HP PRN PO MODERATE PAIN (4-6 PAIN SCALE) 08/29/24 21:30 Ondansetron HCl (Zofran) 4 mg Q4HP PRN IV NAUSEA / VOMITING 08/29/24 21:30 Docusate Sodium (Colace Capsule) 100 mg BIDPRN PRN PO FOR CONSTIPATION 08/29/24 21:30 Acetaminophen (Tylenol Tablet) 650 mg Q6HP PRN PO PAIN SCALE 1-3 OR TEMP>100.4 08/29/24 21:30 Nitroglycerin (Ntrostat Sublingual) 0.4 mg Q5MINP PRN SL FOR CHEST PAIN 08/29/24 22:45 Morphine Sulfate 2 mg Q30M PRN IV FOR CHEST PAIN 08/29/24 22:45 Losartan Potassium (Cozaar Tablet) 50 mg DAILY PO 08/31/24 10:00 Spironolactone (Aldactone) 25 mg DAILY PO 08/31/24 10:00 Review of Systems Constitutional: No symptom reported Ears, Nose, & Throat: No symptom reported Eyes: No symptom reported Neurological: Lightheadedness, dizziness, headache Pulmonary/Respiratory: No symptoms reported Cardiovascular: No symptom reported Gastrointestinal: No symptom reported Genitourinary: No symptom reported Musculoskeletal: No symptom reported Skin: No symptom reported Psychiatric: No symptom reported Endocrine: No symptom reported Hematologic/Lymphatic: No symptom reported Vital Signs Vital Signs Date Time Temp Pulse Resp B/P (MAP) Pulse Ox O2 Delivery O2 Flow Rate FiO2 08/30/24 13:00 98.3 69 16 145/99 (114) 98 98.3 08/30/24 08:15 Room Air* 0 21 Physical Exam General Appearance: Cooperative. Well-developed. Well-nourished. No acute distress. Pulmonary/Respiratory: Clear, bilateral breaths sounds. Cardiovascular/Chest: Regular rate and rhythm. Peripheral Pulses: 2+ Radial (R). 2+ Radial (L). 2+ Pedal (R). 2+ Pedal (L) Abdominal Exam: Normal bowel sounds. Ankle Exam: Negative ankle edema Lower extremities: Negative lower extremity edema Neuro/Mental Status: A/OX4, coherent. Thoughts/Psych: Normal thought pattern. Appropriate mood and affect. Good judgment and insight. Appearance: No acute distress. Skin Exam: Normal inspection. Normal color. Warm and dry. Labs/Diagnostic Data Labs Test 08/30/24 06:14 Range/Units White Blood Count 8.5 4.4-10.8 10^3/uL Red Blood Count 4.68 4.5-5.90 10^6/uL Hemoglobin 14.6 13.5-17.5 g/dL Hematocrit 42.5 41.0-53.0 % Mean Corpuscular Volume 91.0 80.0-100.0 fL Mean Corpuscular Hemoglobin 31.1 28.0-32.0 pg Mean Corpuscular Hemoglobin Concent 34.2 32.0-36.0 g/dL Red Cell Distribution Width 13.8 11.8-14.3 % Platelet Count 173 140-450 10^3/uL Mean Platelet Volume 8.8 6.9-10.8 fL Neutrophils (%) (Auto) 71.4 37.0-80.0 % Lymphocytes (%) (Auto) 14.2 10.0-50.0 % Monocytes (%) (Auto) 11.0 0.0-12.0 % Eosinophils (%) (Auto) 2.9 0.0-7.0 % Basophils (%) (Auto) 0.5 0.0-2.0 % Neutrophils # (Auto) 6.1 1.6-8.6 10 ^3/uL Lymphocytes # (Auto) 1.2 0.4-5.4 10 ^3/uL Monocytes # (Auto) 0.9 0-1.3 10 ^3/uL Eosinophils # (Auto) 0.2 0-0.8 10 ^3/uL Basophils # (Auto) 0 0-0.2 10 ^3/uL Nucleated Red Blood Cells 0.1 % Sodium Level 139 # 136-145 mmol/L Potassium Level 4.4 3.5-5.1 mmol/L Chloride Level 107 98-107 mmol/L Carbon Dioxide Level 23 20-31 mmol/L Anion Gap 9 5-15 Blood Urea Nitrogen 17 9-23 mg/dL Creatinine 1.34 H 0.700-1.30 mg/dL Glomerular Filtration Rate Calc 55 >90 mL/min BUN/Creatinine Ratio 12.7 10.0-20.0 Serum Glucose 101 74-106 mg/dL Calcium Level 9.3 8.7-10.4 mg/dL Total Bilirubin 0.6 0.2-1.0 mg/dL Aspartate Amino Transferase (AST) 22 13-40 U/L Alanine Aminotransferase (ALT) 15 7-40 U/L Alkaline Phosphatase 63 46-116 U/L Total Protein 6.2 5.7-8.2 g/dL Albumin 4.2 3.2-4.8 g/dL Assessment Hypertensive urgency Paroxysmal atrial fibrillation, Stage 3A (on Xarelto) Rule out structural heart disease Dyslipidemia Acute kidney injury (borderline) Plan/Recommendation We will continue with the following plan/recommendations (Dr. Garcia): * Echocardiogram to evaluate cardiac function * Aggressive blood pressure control * Add losartan * Restart patient's home spironolactone dose * Renal ultrasound * ?[id number] VASc score: 3 points * Continue Xarelto * Continue beta-harman, metoprolol (consider Coreg for tighter BP control if tolerated) * Lipid-lowering agent * Cardiac surveillance * Monitor renal function Case discussed with . Patient initiated on losartan therapy. Patient also restarted on spironolactone as taken at home. We will consider switching metoprolol to Coreg for better BP control if patient blood pressure remains high despite current regimen. Thank you for allowing us to care for this patient. Please call with any questions or concerns. Critical care time spent: 40 minutes This medical document was created using an electronic medical record system with voice recognition software and computerized dictation system. Although this document has been carefully reviewed, there might still be some phonetic and typographical errors. Occasional wrong-word or ``sound-alike substitutions may have occurred due to the inherent limitations of voice recognition software. These areas are purely typographical due to imperfections of the software programs and do not reflect any compromise in the patient's medical care. Please read the chart carefully and recognize, using context, where these substitutions have occurred. Plan discussed with: Patient NYHA Physical activity limitations: NA Date of Service: Aug 30, 2024 Billing Provider: KANG GARCIA MD Cardiology Common Codes: [id number] INP/OBS CARE (High) Cardiology Consultation Codes: [id number] CONSULT <45MIN KIRA SANTOS Aug 30, 2024 17:03
[2024-08-30] MEDS: LOSARTAN POTASSIUM 50 MG TAB PO ONE (17:06)
[2024-08-30] MEDS: RIVAROXABAN 20 MG TAB PO SCH (17:08)
[2024-08-30] MEDS: ATORVASTATIN 20 MG TAB PO SCH (21:21)
[2024-08-31] VITALS (8 sets, daily range): BP systolic 108–146; BP diastolic 73–96; PULSE 61–91; RESP 16–18; TEMP 97–98.9; O2SAT 96–98
[2024-08-31 07:43] LABS: Anion Gap 8 (5-15); Carbon Dioxide 27 mmol/L (20-31); Potassium 4.4 mmol/L (3.5-5.1); Sodium 142 mmol/L (136-145)
[2024-08-31 07:44] LABS: Calcium 9.3 mg/dL (8.7-10.4)
[2024-08-31 07:47] LABS: Chloride 107 mmol/L (98-107)
[2024-08-31 07:48] LABS: Glucose 97 mg/dL (74-106)
[2024-08-31 07:49] LABS: BUN/Creatinine Ratio 13.7 (10.0-20.0); Blood Urea Nitrogen 18 mg/dL (9-23); Magnesium 1.9 mg/dL (1.6-2.6); Triglycerides 82 mg/dL (< 150)
[2024-08-31 07:50] LABS: Basophils # (auto) 0 10 ^3/uL (0-0.2); Basophils % (auto) 0.7 % (0.0-2.0); Cholesterol 100 mg/dL (< 200); Eosinophils # (auto) 0.3 10 ^3/uL (0-0.8); Eosinophils % (auto) 4.2 % (0.0-7.0); Hematocrit 43.3 % (41.0-53.0); Hemoglobin 14.8 g/dL (13.5-17.5); LDL Cholesterol 41 mg/dL (< 100); Lymphocytes # (auto) 1.3 10 ^3/uL (0.4-5.4); Lymphocytes % (auto) 19.2 % (10.0-50.0); Mean Corpuscular Hemoglobin 31.2 pg (28.0-32.0); Mean Corpuscular Hgb Conc. 34.2 g/dL (32.0-36.0); Mean Corpuscular Volume 91.1 fL (80.0-100.0); Monocytes # (auto) 0.6 10 ^3/uL (0-1.3); Monocytes % (auto) 9.5 % (0.0-12.0); Neutrophils # (auto) 4.5 10 ^3/uL (1.6-8.6); Neutrophils % (auto) 66.4 % (37.0-80.0); Nucleated Red Blood Cells % 0.1 %; Platelet Count (auto) 177 10^3/uL (140-450); Red Blood Cells 4.76 10^6/uL (4.5-5.90); Red Cell Distribution Width 13.7 % (11.8-14.3); White Blood Cell 6.7 10^3/uL (4.4-10.8)
[2024-08-31 07:51] LABS: HDL Cholesterol 43 mg/dL (40-59)
--- NOTE | 2024-08-31 09:23 | DVH ---
ULTRASOUND RENAL CLINICAL INDICATION: Renal artery stenosis TECHNIQUE: Real-time sonographic, duplex, and color Doppler images of the kidneys were obtained. Comparison: CT scan dated 11/23/2023 FINDINGS: The right kidney measures 12 cm in length, normal. The right renal echogenicity, contour and cortica l thickness are within normal limits. No hydronephrosis, suspicious masses or perinephric fluid is se en. Several renal cysts are seen measuring up to 3.5 cm. The left kidney measures 10 cm , normal. Severe parenchymal loss and cortical atrophy. Severe hydron ephrosis noted. No suspicious masses or perinephric fluid is seen. Subsequent Doppler interrogation of the kidneys was performed. On the right, the internal renal artery Doppler showed good upstroke during systole . The main renal artery has a peak systolic velocity of 83 centimeter/second and end-diastolic velocity of 28.4 centi meter/second. Intrarenal arteries have peak systolic velocities that measure up to 29 centimeter/seco nd with resistive indices ranging 0.66. Renal artery -aorta ratio is 1.1 on the right side. The velocity within the aorta measures 76.5 m/sec. Aorta measures 1.7 cm in caliber at the level of renal arteries. On the left internal renal artery Doppler showed good upstroke during systole . The main renal cara ry has a maximum peak systolic velocity of 73.8 centimeter/second. Intrarenal arteries show peak sy stolic velocity measuring up to 12.8 centimeter/second and end-diastolic velocity of 4.2 centimeter/ second. Resistive index is 0.86. Renal artery- aorta ratio is 1. IMPRESSION: 1. The right kidney is normal in morphology with no evidence of renal artery stenosis. 2. The left kidney is markedly atrophic with severe hydronephrosis. No signs of left renal artery st enosis. However, there is elevated resistive indices of the intrarenal arteries which is probably re lated to chronic kidney disease. Renal artery stenosis criteria (> 60%): PSV > 180 centimeter/second RAR > 3.0 RI > 0.8 for chronic renal disease.
[2024-08-31] MEDS: SPIRONOLACTONE 25 MG TAB PO SCH (10:03)
[2024-08-31] MEDS: LOSARTAN POTASSIUM 50 MG TAB PO SCH (10:04)
--- NOTE | 2024-08-31 11:50 | DVHPN2 ---
Reviewed: Care Plan, H&P, Labs, Medications, Previous Orders, Radiology Changes from previous H/P or p: No Changes Eyes: No Pain, No Vision change, No Conjunctivae inflammation, No Eyelid inflammation; Other (Blurred vision); No Redness ENT: No Ear pain, No Ear discharge, No Nose pain, No Nose discharge, No Nose congestion, No Mouth pain, No Mouth swelling, No Throat pain, No Throat swelling; Other (Ear ringing) Cardiovascular: No Chest Pain, No Palpitations, No Orthopnea, No Paroxysmal Noc. Dyspnea, No Edema; Lt Headedness; No Other Respiratory: No Cough, No Dry, No Shortness of breath, No SOB with excertion, No Wheezing, No Hemoptysis, No Pleuritic Pain, No Sputum, No Other Gastrointestinal: No Nausea, No Vomiting, No Abdominal Pain, No Diarrhea, No Constipation, No Melena, No Hematochezia, No Other Genitourinary: No Dysuria, No Frequency, No Incontinence, No Hematuria, No Retention, No Other Musculoskeletal: No other, No neck pain, No shoulder pain, No arm pain, No back pain, No hand pain, No leg pain, No foot pain Skin: No Rash, No Lesions, No Jaundice, No Bruising, No Other Objective Vitals Vital Signs Date Time Temp Pulse Resp B/P (MAP) Pulse Ox O2 Delivery O2 Flow Rate FiO2 08/31/24 11:06 82 110/65 08/31/24 09:26 98.9 16 96 98.9 08/31/24 08:00 Room Air* 0 21 Intake/Output Intake and Output 08/31/24 07:00 Intake Total 425 ml Balance 425 ml Intake Oral 425 ml # Voids 6 # Bowel Movements 1 Medications Current Medications Medications Dose Ordered Sig/Cristy Route Start Time Stop Time Status Last Admin Dose Admin Rivaroxaban 20 mg QPM PO 08/30/24 18:00 08/30/24 17:08 20 MG Amlodipine Besylate 5 mg DAILY PO 08/30/24 10:00 08/31/24 10:06 5 MG Hydralazine HCl 10 mg Q6HP PRN IV 08/29/24 21:30 08/30/24 21:28 10 MG Metoprolol Tartrate 50 mg BID PO 08/29/24 22:00 08/31/24 10:06 50 MG Acetaminophen/ Hydrocodone Bitart 1 tab Q4HP PRN PO 08/29/24 21:30 Ondansetron HCl 4 mg Q4HP PRN IV 08/29/24 21:30 Docusate Sodium 100 mg BIDPRN PRN PO 08/29/24 21:30 Acetaminophen 650 mg Q6HP PRN PO 08/29/24 21:30 Nitroglycerin 0.4 mg Q5MINP PRN SL 08/29/24 22:45 Morphine Sulfate 2 mg Q30M PRN IV 08/29/24 22:45 Losartan Potassium 50 mg DAILY PO 08/31/24 10:00 08/31/24 10:04 50 MG Spironolactone 25 mg DAILY PO 08/31/24 10:00 08/31/24 10:03 25 MG Atorvastatin Calcium 40 mg HS PO 08/30/24 22:00 08/30/24 21:21 40 MG Laboratory Results Laboratory Tests 08/31/24 07:04 Chemistry Test 08/31/24 07:04 Calcium Level 9.3 mg/dL (8.7-10.4) Magnesium Level 1.9 mg/dL (1.6-2.6) Lipid panel Test 08/31/24 07:04 Cholesterol Level 100 mg/dL (< 200) HDL Cholesterol 43 mg/dL (40-59) Triglycerides Level 82 mg/dL (< 150) HgA1c, TSH Test 08/31/24 07:04 Hemoglobin A1c 5.4 % A1C (<5.7) Thyroid Stimulating Hormone (TSH) 3.30 uIU/mL (0.55-4.78) Labs and/or images reviewed: Labs reviewed by me, Image(s) reviewed by me Assessment/Plan Assessment/Plan Accelerated Hypertension 182/118,cardiology consult by Dr. Jimenez appreciated, advised to continue metoprolol, spironolactone added losartan 50 mg p.o. daily AFib with RVR, Xarelto Hypercholesterolemia: Lipitor Echocardiogram result pending Kidney ultrasound shows: The right kidney is normal in morphology with no evidence of renal artery stenosis. The left kidney is markedly atrophic with severe hydronephrosis. No signs of left renal artery stenosis. However, there is elevated resistive indices of the intrarenal arteries which is probably related to chronic kidney disease. Per Patient he was history of atrophic left kidney diagnosed in the recent past Time spent 45 minutes Plan discussed with: Patient My Orders Orders - ADALBERTO RHOADES MD Procedure Category Date Status Time * Cardiology Consult CONS 08/30/24 Transmitted 14:40 Date of Service: Aug 31, 2024 Billing Provider: ADALBERTO RHOADES MD Common Visit Codes: [id number] INP/OBS CARE(HIGH) ADALBERTO RHOADES MD Aug 31, 2024 11:50
--- NOTE | 2024-08-31 12:08 | DVHSR ---
APPROVED REPORT EXAM: Two-dimensional and M-mode echocardiogram with Doppler and color Doppler. Blood Pressure: 129/79 mmHg INDICATION Evaluate cardiac function RISK FACTORS Height: 5'11", Weight: 184 DIMENSIONS LVDd3.8 (3.8-5.7cm)LA (2D)3.5 (1.9-4.0cm)Aortic Root3.5 (2.0-3.7cm) LVDs1.9 (2.5-4.0cm)LA (MM) (1.9-4.0cm)Aortic Cusp Exc1.6 (1.5-2.0cm) EF (%) 82.0 (55-70%)Rt. Atrium3.5 (1.9-4.0cm)Asc. Aorta3.7 cm IVSd1.3 (0.7-1.1cm)RV (D)3.4 (1.8-2.4cm) PWd0.8 (0.7-1.1cm) Mitral Valve MitralMitral Stenosis E/A ratio0.02D MVAcm2 Aortic Valve Aortic ValveAortic Stenosis V11.34m/Vineet Mean GR.4mmHg V21.33m/Vineet Peak GR.7mmHg LVOT Diameter2.3 (1.8-2.4cm)Doppler AVA4.18cm2 Pulmonic Valve V20.88m/s LEFT VENTRICLE The left ventricle is of normal size. Wall thickness is normal. Ejection fraction is normal and is estimated at 65-70%. There is no regional wall motion abnormalities. Diastolic function is preserve d. RIGHT VENTRICLE The right ventricle is of normal size. Systolic function is normal. ATRIA Both atria are of normal size. Intra-atrial septum is not well visualized. MITRAL VALVE Normal structure and function. No significant mitral regurgitation. PULMONIC VALVE Likely normal. TRICUSPID VALVE Normal structure and function. No significant tricuspid regurgitation. PA systolic pressure isn't a dequately estimated. AORTIC VALVE Normal structure and function. GREAT VESSELS The aortic root is of normal size. Proximal ascending aorta is of normal size. PERICARDIAL EFFUSION No significant pericardial effusion. IVC is of normal size and collapses normally with inspiration. Conclusion Normal left ventricular size and systolic function. Ejection fraction is estimated at 65-70%. Normal right ventricular size and systolic function. No hemodynamically significant valvular disease. PA systolic pressure isn't adequately estimated.
[2024-08-31] MEDS: SODIUM CHLORIDE 0.9% 1,000 ML IV ONE ×2 (15:16→16:27)
--- NOTE | 2024-08-31 16:18 | DVHPN2 ---
Consult Progress Note Date Seen: Aug 31, 2024 Subjective Review of Systems: CVS:Normal, RESPIRATORY:Normal, NEURO:Normal Other Systems: Notified of intermittent tachycardia Objective vital signs Vital Sign Date Time Temp Pulse Resp B/P (MAP) Pulse Ox O2 Delivery O2 Flow Rate FiO2 08/31/24 13:28 98.7 82 17 137/93 (108) 97 98.7 08/31/24 08:00 Room Air* 0 21 Total Intake and Output 08/30/24 08/30/24 08/31/24 14:59 22:59 06:59 Intake Total 425 ml 0 ml Balance 425 ml 0 ml medications Current Medications Medications Dose Ordered Sig/Cristy Route Start Time Stop Time Status Last Admin Dose Admin Rivaroxaban 20 mg QPM PO 08/30/24 18:00 08/30/24 17:08 20 MG Amlodipine Besylate 5 mg DAILY PO 08/30/24 10:00 08/31/24 10:06 5 MG Hydralazine HCl 10 mg Q6HP PRN IV 08/29/24 21:30 08/30/24 21:28 10 MG Metoprolol Tartrate 50 mg BID PO 08/29/24 22:00 08/31/24 10:06 50 MG Acetaminophen/ Hydrocodone Bitart 1 tab Q4HP PRN PO 08/29/24 21:30 Ondansetron HCl 4 mg Q4HP PRN IV 08/29/24 21:30 Docusate Sodium 100 mg BIDPRN PRN PO 08/29/24 21:30 Acetaminophen 650 mg Q6HP PRN PO 08/29/24 21:30 Nitroglycerin 0.4 mg Q5MINP PRN SL 08/29/24 22:45 Morphine Sulfate 2 mg Q30M PRN IV 08/29/24 22:45 Losartan Potassium 50 mg DAILY PO 08/31/24 10:00 08/31/24 10:04 50 MG Spironolactone 25 mg DAILY PO 08/31/24 10:00 08/31/24 10:03 25 MG Atorvastatin Calcium 40 mg HS PO 08/30/24 22:00 08/30/24 21:21 40 MG Examination: LUNGS:Normal, CVS:Normal, NEURO:Normal laboratory and microbiology Laboratory Tests 08/31/24 07:04 Test 08/31/24 07:04 Range/Units Serum Glucose 97 74-106 mg/dL Problem List/Assessment/Plan Problem List/Assessment/Plan Hypertensive urgency, resolved Paroxysmal atrial fibrillation, Stage 3A, now NSR (on Xarelto) Dyslipidemia CKD Stage III Plan/Recommendation (Dr. Jimenez) * Echocardiogram revealed EF 65-70% * Continue aggressive blood pressure control * ARB, Aldactone, BB, CCB * Renal artery ultrasound, negative for stenosis * Continue DOAC therapy with Xarelto HS * [id number] VASc Score: 3 points. HAS-BLED Score: 3 points * Continue rate control with beta-harman * Cardiac surveillance given * Cortisol levels AM/PM Noted patient to experience a sinus tachycardia rhythm up to the 150s bpm associated with activity such as ambulation. He is asymptomatic. Initiate hydration challenge with IVF bolus and maintenance dose overnight. Encourage fluid oral intake. We will reassess in the morning. Thank you for allowing us to care for this patient. Please call with any questions or concerns. This medical document was created using an electronic medical record system with voice recognition software and computerized dictation system. Although this document has been carefully reviewed, there might still be some phonetic and typographical errors. Occasional wrong-word or ``sound-alike substitutions may have occurred due to the inherent limitations of voice recognition software. These areas are purely typographical due to imperfections of the software programs and do not reflect any compromise in the patient's medical care. Please read the chart carefully and recognize, using context, where these substitutions have occurred. Plan discussed with: Patient, Other Date of Service: Aug 31, 2024 Billing Provider: NAHOMI HARDY Cardiology Common Codes: [id number] HOSP CARE(High NAHOMI HARDY Aug 31, 2024 16:18
[2024-09-01 01:00] VITALS: BP 120/82; PULSE 57; RESP 19; TEMP 97.7; O2SAT 95
[2024-09-01 05:00] VITALS: BP 147/89; PULSE 70; RESP 18; TEMP 97.6; O2SAT 98
[2024-09-01 08:00] VITALS: PULSE 85; PULSE 89; RESP 17; O2SAT 98
[2024-09-01] MEDS ORDERED: LOSA-533 PO ×2 (10:22→16:17)
--- NOTE | 2024-09-01 10:24 | DVHPN2 ---
Reviewed: Care Plan, H&P, Labs, Medications, Previous Orders, Radiology Changes from previous H/P or p: No Changes Eyes: No Pain, No Vision change, No Conjunctivae inflammation, No Eyelid inflammation; Other (Blurred vision); No Redness ENT: No Ear pain, No Ear discharge, No Nose pain, No Nose discharge, No Nose congestion, No Mouth pain, No Mouth swelling, No Throat pain, No Throat swelling; Other (Ear ringing) Cardiovascular: No Chest Pain, No Palpitations, No Orthopnea, No Paroxysmal Noc. Dyspnea, No Edema; Lt Headedness; No Other Respiratory: No Cough, No Dry, No Shortness of breath, No SOB with excertion, No Wheezing, No Hemoptysis, No Pleuritic Pain, No Sputum, No Other Gastrointestinal: No Nausea, No Vomiting, No Abdominal Pain, No Diarrhea, No Constipation, No Melena, No Hematochezia, No Other Genitourinary: No Dysuria, No Frequency, No Incontinence, No Hematuria, No Retention, No Other Musculoskeletal: No other, No neck pain, No shoulder pain, No arm pain, No back pain, No hand pain, No leg pain, No foot pain Skin: No Rash, No Lesions, No Jaundice, No Bruising, No Other Objective Vitals Vital Signs Date Time Temp Pulse Resp B/P (MAP) Pulse Ox O2 Delivery O2 Flow Rate FiO2 09/01/24 08:36 153/96 09/01/24 05:00 97.6 70 18 98 97.6 08/31/24 20:00 Room Air* 0 21 Intake/Output Intake and Output 09/01/24 07:00 Intake Total 1700 ml Balance 1700 ml Intake Oral 1700 ml # Voids 11 Medications Current Medications Medications Dose Ordered Sig/Cristy Route Start Time Stop Time Status Last Admin Dose Admin Rivaroxaban 20 mg QPM PO 08/30/24 18:00 08/31/24 17:14 20 MG Amlodipine Besylate 5 mg DAILY PO 08/30/24 10:00 09/01/24 08:36 5 MG Hydralazine HCl 10 mg Q6HP PRN IV 08/29/24 21:30 09/01/24 01:42 10 MG Metoprolol Tartrate 50 mg BID PO 08/29/24 22:00 08/31/24 10:06 50 MG Acetaminophen/ Hydrocodone Bitart 1 tab Q4HP PRN PO 08/29/24 21:30 Ondansetron HCl 4 mg Q4HP PRN IV 08/29/24 21:30 Docusate Sodium 100 mg BIDPRN PRN PO 08/29/24 21:30 Acetaminophen 650 mg Q6HP PRN PO 08/29/24 21:30 Nitroglycerin 0.4 mg Q5MINP PRN SL 08/29/24 22:45 Morphine Sulfate 2 mg Q30M PRN IV 08/29/24 22:45 Losartan Potassium 50 mg DAILY PO 08/31/24 10:00 09/01/24 08:35 50 MG Spironolactone 25 mg DAILY PO 08/31/24 10:00 09/01/24 08:35 25 MG Atorvastatin Calcium 40 mg HS PO 08/30/24 22:00 08/31/24 21:37 40 MG Laboratory Results Laboratory Tests 08/31/24 07:04 Labs and/or images reviewed: Labs reviewed by me, Image(s) reviewed by me Assessment/Plan Assessment/Plan Hypertensive urgency, resolved placed on losartan and continued spironolactone and metoprolol, ejection fraction 60 percent cardiology consult appreciated Paroxysmal atrial fibrillation, Stage 3A, now NSR (on Xarelto) Dyslipidemia Lipitor CKD Stage III Plan discussed with: Patient Date of Service: Sep 01, 2024 Billing Provider: ADALBERTO RHOADES MD Common Visit Codes: [id number] INP/OBS CARE(HIGH) ADALBERTO RHOADES MD Sep 01, 2024 10:23
--- NOTE | 2024-09-01 10:28 | DVHDS2 ---
Discharge Summary Date of Admission Aug 29, 2024 at 22:37 Date of Discharge: Sep 01, 2024 Admitting Diagnosis Elevated blood pressure Wounds: None Labs/Diagnostic Data: Laboratory Results Test 08/31/24 07:04 08/30/24 06:14 White Blood Count 6.7 10^3/uL (4.4-10.8) Red Blood Count 4.76 10^6/uL (4.5-5.90) Hemoglobin 14.8 g/dL (13.5-17.5) Hematocrit 43.3 % (41.0-53.0) Mean Corpuscular Volume 91.1 fL (80.0-100.0) Mean Corpuscular Hemoglobin 31.2 pg (28.0-32.0) Mean Corpuscular Hemoglobin Concent 34.2 g/dL (32.0-36.0) Red Cell Distribution Width 13.7 % (11.8-14.3) Platelet Count 177 10^3/uL (140-450) Mean Platelet Volume 9.0 fL (6.9-10.8) Neutrophils (%) (Auto) 66.4 % (37.0-80.0) Lymphocytes (%) (Auto) 19.2 % (10.0-50.0) Monocytes (%) (Auto) 9.5 % (0.0-12.0) Eosinophils (%) (Auto) 4.2 % (0.0-7.0) Basophils (%) (Auto) 0.7 % (0.0-2.0) Neutrophils # (Auto) 4.5 10 ^3/uL (1.6-8.6) Lymphocytes # (Auto) 1.3 10 ^3/uL (0.4-5.4) Monocytes # (Auto) 0.6 10 ^3/uL (0-1.3) Eosinophils # (Auto) 0.3 10 ^3/uL (0-0.8) Basophils # (Auto) 0 10 ^3/uL (0-0.2) Nucleated Red Blood Cells 0.1 % Sodium Level 142 mmol/L (136-145) Potassium Level 4.4 mmol/L (3.5-5.1) Chloride Level 107 mmol/L (98-107) Carbon Dioxide Level 27 mmol/L (20-31) Anion Gap 8 (5-15) Blood Urea Nitrogen 18 mg/dL (9-23) Creatinine 1.31 mg/dL (0.700-1.30) Glomerular Filtration Rate Calc 57 mL/min (>90) BUN/Creatinine Ratio 13.7 (10.0-20.0) Serum Glucose 97 mg/dL (74-106) Hemoglobin A1c 5.4 % A1C (<5.7) Calcium Level 9.3 mg/dL (8.7-10.4) Magnesium Level 1.9 mg/dL (1.6-2.6) Triglycerides Level 82 mg/dL (< 150) Cholesterol Level 100 mg/dL (< 200) LDL Cholesterol 41 mg/dL (< 100) HDL Cholesterol 43 mg/dL (40-59) Thyroid Stimulating Hormone (TSH) 3.30 uIU/mL (0.55-4.78) Total Bilirubin 0.6 mg/dL (0.2-1.0) Aspartate Amino Transferase (AST) 22 U/L (13-40) Alanine Aminotransferase (ALT) 15 U/L (7-40) Alkaline Phosphatase 63 U/L (46-116) Total Protein 6.2 g/dL (5.7-8.2) Albumin 4.2 g/dL (3.2-4.8) Other Laboratory Tests 08/31/24 07:04 Brief Hx & Hospital Course: 74-year-old male admitted for elevated blood pressure. Blood pressure in the range of 190. Treated with the losartan home medication spironolactone metoprolol continued blood pressure controlled history of paroxysmal AFib continued on home medications Xarelto he takes Lipitor for the hypercholesterolemia which was continued. Cardiology consult by Dr. Jimenez. Echocardiogram 60 percent ejection fraction. Renal arterial stenosis ruled out by negative ultrasound. Patient discharged home in stable condition cleared for discharge by Cardiology. Consults/Reason for consult Cardiology Dr Jimenez Operations or Procedures Echocardiogram Condition at Discharge: Fair Final Diagnosis/Problems List Hypertensive urgency, resolved placed on losartan and continued spironolactone and metoprolol, ejection fraction 60 percent cardiology consult appreciated Paroxysmal atrial fibrillation, Stage 3A, now NSR (on Xarelto) Dyslipidemia Lipitor CKD Stage III Renal artery stenosis ruled out Discharge Disposition: Home Discharge Instruct/Medications Diet: Cardiac 2g Na,low cholest Activity: Light activity Follow Up/Referral: Continue all your previous home medications Follow up with the primary Dr in one week follow up with the Cardiology Dr. Jimenez in two weeks Medications: Losartan 25 mg p.o. daily number 90 39 (Time Taken For discharge summary 39 minutes) Discharge Statement: "Patient was advised to return to the ER or call 911 if any headaches, dizziness, shortness of breath, chest pain, abdominal pain, bleeding, fevers, or worsening of medical condition. Patient was counseled about treatment plan, medications, possible side effects, patientverbalized understanding. All questions were answered to the best of my ability. This discharge took greater then 30 minutes in planning, reviewing documentation, counseling the patient, and discussing with other team members." ASSESSMENT ASSESSMENT Hospital Course Improved Assessment Hypertensive urgency, resolved placed on losartan and continued spironolactone and metoprolol, ejection fraction 60 percent cardiology consult appreciated Paroxysmal atrial fibrillation, Stage 3A, now NSR (on Xarelto) Dyslipidemia Lipitor CKD Stage III Renal artery stenosis ruled out Date of Service: Sep 01, 2024 Billing Provider: ADALBERTO RHOADES MD Common Visit Codes: 24128-RZA/OBS DISCH DAY >30min ADALBERTO RHOADES MD Sep 01, 2024 10:28
[2024-09-01 13:00] VITALS: BP 143/94; PULSE 76; RESP 17; TEMP 97.5; O2SAT 97
[2024-09-01 13:52] LABS: Basophils # (auto) 0.1 10 ^3/uL (0-0.2); Basophils % (auto) 0.6 % (0.0-2.0); Eosinophils # (auto) 0.2 10 ^3/uL (0-0.8); Eosinophils % (auto) 2.1 % (0.0-7.0); Hematocrit 44.7 % (41.0-53.0); Hemoglobin 15.5 g/dL (13.5-17.5); Lymphocytes # (auto) 1.3 10 ^3/uL (0.4-5.4); Lymphocytes % (auto) 16.4 % (10.0-50.0); Mean Corpuscular Hemoglobin 31.3 pg (28.0-32.0); Mean Corpuscular Hgb Conc. 34.6 g/dL (32.0-36.0); Mean Corpuscular Volume 90.6 fL (80.0-100.0); Monocytes # (auto) 0.6 10 ^3/uL (0-1.3); Monocytes % (auto) 7.8 % (0.0-12.0); Neutrophils # (auto) 5.8 10 ^3/uL (1.6-8.6); Neutrophils % (auto) 73.1 % (37.0-80.0); Nucleated Red Blood Cells % 0.1 %; Platelet Count (auto) 203 10^3/uL (140-450); Red Blood Cells 4.93 10^6/uL (4.5-5.90); Red Cell Distribution Width 13.6 % (11.8-14.3)
[2024-09-01 14:12] LABS: Chloride 106 mmol/L (98-107); Potassium 4.7 mmol/L (3.5-5.1); Sodium 138 mmol/L (136-145)
[2024-09-01 14:13] LABS: Anion Gap 5 (5-15); Carbon Dioxide 27 mmol/L (20-31)
[2024-09-01 14:14] LABS: Calcium 9.8 mg/dL (8.7-10.4)
[2024-09-01 14:18] LABS: BUN/Creatinine Ratio 11.4 (10.0-20.0); Blood Urea Nitrogen 14 mg/dL (9-23); Glucose 104 mg/dL (74-106)
[2024-09-01] MEDS ORDERED: NIFE1TAB31 PO (16:17)
--- NOTE | 2024-09-01 16:21 | DVHPN2 ---
Consult Progress Note Date Seen: Sep 01, 2024 Subjective Review of Systems: CVS:Normal, RESPIRATORY:Normal, NEURO:Normal Objective vital signs Vital Sign Date Time Temp Pulse Resp B/P (MAP) Pulse Ox O2 Delivery O2 Flow Rate FiO2 09/01/24 13:00 97.5 76 17 143/94 (110) 97 97.5 09/01/24 08:00 Room Air* 0 21 Total Intake and Output 08/31/24 08/31/24 09/01/24 15:00 23:00 07:00 Intake Total 740 ml 960 ml Balance 740 ml 960 ml medications Current Medications Medications Dose Ordered Sig/Cristy Route Start Time Stop Time Status Last Admin Dose Admin Rivaroxaban 20 mg QPM PO 08/30/24 18:00 08/31/24 17:14 20 MG Amlodipine Besylate 5 mg DAILY PO 08/30/24 10:00 09/01/24 08:36 5 MG Hydralazine HCl 10 mg Q6HP PRN IV 08/29/24 21:30 09/01/24 01:42 10 MG Metoprolol Tartrate 50 mg BID PO 08/29/24 22:00 08/31/24 10:06 50 MG Acetaminophen/ Hydrocodone Bitart 1 tab Q4HP PRN PO 08/29/24 21:30 Ondansetron HCl 4 mg Q4HP PRN IV 08/29/24 21:30 Docusate Sodium 100 mg BIDPRN PRN PO 08/29/24 21:30 Acetaminophen 650 mg Q6HP PRN PO 08/29/24 21:30 Nitroglycerin 0.4 mg Q5MINP PRN SL 08/29/24 22:45 Morphine Sulfate 2 mg Q30M PRN IV 08/29/24 22:45 Losartan Potassium 50 mg DAILY PO 08/31/24 10:00 09/01/24 08:35 50 MG Spironolactone 25 mg DAILY PO 08/31/24 10:00 09/01/24 08:35 25 MG Atorvastatin Calcium 40 mg HS PO 08/30/24 22:00 08/31/24 21:37 40 MG Examination: LUNGS:Normal, CVS:Normal, NEURO:Normal laboratory and microbiology Laboratory Tests 09/01/24 13:34 Test 09/01/24 13:34 Range/Units Serum Glucose 104 74-106 mg/dL Problem List/Assessment/Plan Problem List/Assessment/Plan Hypertensive urgency, resolved Paroxysmal atrial fibrillation, Stage 3A, now NSR (on Xarelto) Rule out postural orthostatic tachycardia syndrome Dyslipidemia CKD Stage III Plan/Recommendation (Dr. Henriquez) * Echocardiogram revealed EF 65-70% * Continue aggressive blood pressure control * Losartan potassium and Nifedipine, uptitrate as necessary * Avoid home hydralazine therapy as it can induced reflex tachycardia * Renal artery ultrasound, negative for stenosis * Continue DOAC therapy with Xarelto HS * [id number] VASc Score: 3 points. HAS-BLED Score: 3 points * Cortisol levels AM/PM pending (pt refused morning draw) * Outpatient event monitor Noted patient to experience a sinus tachycardia rhythm up to the 150s bpm and associated with activity such as ambulation. He is asymptomatic. A hydration challenge with IVF bolus and maintenance dose overnight was instituted with not much success. He is currently on an ARB and CCB for blood pressure control. Refused metoprolol given history of symptomatic bradycardia while on this medication in the past. Recommendations are for blood pressure control and an outpatient event monitor for which the patient has been scheduled with Dr. Henriquez on 09/03/24 at 1500. Thank you for allowing us to care for this patient. Please call with any questions or concerns. This medical document was created using an electronic medical record system with voice recognition software and computerized dictation system. Although this document has been carefully reviewed, there might still be some phonetic and typographical errors. Occasional wrong-word or ``sound-alike substitutions may have occurred due to the inherent limitations of voice recognition software. These areas are purely typographical due to imperfections of the software programs and do not reflect any compromise in the patient's medical care. Please read the chart carefully and recognize, using context, where these substitutions have occurred. Plan discussed with: Patient, Other Date of Service: Sep 01, 2024 Billing Provider: NAHOMI HARDY Cardiology Common Codes: [id number] HOSP CARE([facility] NAHOMI HARDY Sep 01, 2024 16:21
== END 2024-09-01 16:13 | disposition home or self-care (01) | DRG 304 ==
LOC: ER 11:05 → TELE 22:37 → TELE-EAST 23:57
PROVIDERS: ADMIT Nurse Practitioner Family; ATTEND Family Medicine
DX: I16.0 Hypertensive urgency (principal); N17.0 Acute kidney failure with tubular necrosis; N13.30 Unspecified hydronephrosis; E86.0 Dehydration; E78.00 Pure hypercholesterolemia, unspecified; I48.0 Paroxysmal atrial fibrillation; N18.30 Chronic kidney disease, stage 3 unspecified; I12.9 Hypertensive chronic kidney disease with stage 1 through stage 4 chronic kidney disease, or unspecified chronic kidney disease; Z79.01 Long term (current) use of anticoagulants; Z79.899 Other long term (current) drug therapy; Z83.3 Family history of diabetes mellitus; Z82.49 Family history of ischemic heart disease and other diseases of the circulatory system; E78.5 Hyperlipidemia, unspecified
CPT/HCPCS: 36415; 80048; 80053; 80061; 83036; 83735; 84443; 85025; 93005; 93306; 93975; 96360; G0378

== ENCOUNTER → 2024-10-19 | Outpatient (CLI) | payer MEDICARE ==
[~2024-10-19] MED LIST changes: +LOSA-533 PO
== END | disposition home or self-care (01) ==
LOC: LAB 08:13
PROVIDERS: ATTEND Urology
DX: N40.1 Benign prostatic hyperplasia with lower urinary tract symptoms (principal)
CPT/HCPCS: 36415; 82565; 84520

== ENCOUNTER → 2024-11-09 | Outpatient (CLI) | payer MEDICARE ==
[~2024-11-09] VITALS: Ht 180.3 cm; Wt 86.2 kg
[2024-11-09] MEDS: REGADENOSON 0.4 MG/5 ML SYRG IV ONE ×2 (10:33→10:34)
--- NOTE | 2024-11-09 14:29 | DVHSR ---
APPROVED REPORT Exam: Nuclear Stress Test Indication: Palpitations , Chest pain Stress Tech: Tayler Lucio Ht: 5 ft 11 in Wt: 190 lbs BSA: 2.06 m2 BMI: 26.49 Medical History Medical History: HTN, PAROXSYMAL A. FIB, DECREASED RENAL FUNCTION Allergies: SENSITIVE EPINPEHERINE Stress Test Details Stress Test: Pharmacologic stress testing performed using 0.4 mg of regadenoson per 5 mL given IV ov er 10 seconds. Reason for pharmacologic stress test: PALPITATIONS/CP. HR Resting HR: 61 bpmMax Heart Rate (APMHR): 145.791585 bpm Max HR Achieved: 108 bpmTarget HR (85% APMHR): 123.171233 bpm % of APMHR: 74.48 Recovery HR: 76 bpm BP Resting BP: 154/97 mmHg Recovery BP: 155/94 mmHg ECG Resting ECG: Sinus Rhythm Clinical Reason for Termination: Completed protocol Nurse Comments Received patient from Nuclear Medicine. Patient is A&O x4 and on RA. FOR VS please refer back to st ress test assessment documentation. Patient is connected to alarm security or surveillance monitor. See cardio-neuro proce dural notes for addtional details. PIV flushes well. Reviewed POC and patient verbalizes understand ing and consents to test. Lexiscan stress test performed per protocol. pump technician administered the Cardiolite. Pat ient tolerated well and vitals returned to baseline. Transferred to Nuclear Medicine via wheelchair with tech in stable condition. Stress ECG Conclusion no severe ischemia noted lvef 62% inferior wall artifact noted NM EXAM: Myocardial Perfusion REST/STRESS Imaging Protocol: Rest Tc-99m/Stress Tc-99m 1 day Resting Data Rest SPECT myocardial perfusion imaging was performed in supine position 60 minutes following the int ravenous injection of 12.4 mCi of Tc-99m Sestamibi. Time of rest injection: 919 Date: 11/09/2024 Time of rest imagin Date: 11/09/2024 Administration Route: IV Administration Site: Left Arm Pharmacologic Stress Pharmacologic stress test was performed by injecting Regadenoson 0.4 mg IV push followed by the intra venous injection of 35.0 mCi of Tc-99m Sestamibi. Time of stress injection: 103 Date: 11/09/2024 Time of stress imagin Date: 11/09/2024 Administration Route: IV Administration Site: Left Arm Gated Stress SPECT was performed 60 minutes after stress injection. The images were gated to evaluate regional wall motion and calculate left ventricular ejection fracti on. Stress only was performed in the Supine position. Nuclear Conclusion Nuclear Findings: negative for ischemia no severe ischemia noted lvef 62% inferior wall artifact noted
== END | disposition home or self-care (01) ==
LOC: XY 08:53
PROVIDERS: ATTEND Internal Medicine
DX: R00.2 Palpitations (principal); R07.9 Chest pain, unspecified; I10 Essential (primary) hypertension; I48.0 Paroxysmal atrial fibrillation; D68.69 Other thrombophilia; R97.20 Elevated prostate specific antigen [PSA]
CPT/HCPCS: 78452; 93017; A9500; J2785

== ENCOUNTER 2025-01-11 09:28 | Outpatient (CLI) | payer MEDICARE ==
[2025-01-11 09:59] LABS: Urine Bacteria None Seen /hpf (None Seen)
[2025-01-11 10:10] LABS: Basophils # (auto) 0 10 ^3/uL (0-0.2); Basophils % (auto) 0.4 % (0.0-2.0); Eosinophils # (auto) 0.1 10 ^3/uL (0-0.8); Eosinophils % (auto) 1.4 % (0.0-7.0); Hematocrit 44.6 % (41.0-53.0); Hemoglobin 15.2 g/dL (13.5-17.5); Lymphocytes # (auto) 1.2 10 ^3/uL (0.4-5.4); Lymphocytes % (auto) 13.7 % (10.0-50.0); Mean Corpuscular Hemoglobin 31.1 pg (28.0-32.0); Mean Corpuscular Hgb Conc. 34.1 g/dL (32.0-36.0); Mean Corpuscular Volume 91.3 fL (80.0-100.0); Monocytes # (auto) 0.6 10 ^3/uL (0-1.3); Monocytes % (auto) 6.8 % (0.0-12.0); Neutrophils % (auto) 77.7 % (37.0-80.0); Platelet Count (auto) 166 10^3/uL (140-450); Red Blood Cells 4.89 10^6/uL (4.5-5.90); Red Cell Distribution Width 13.5 % (11.8-14.3)
[2025-01-11 10:19] LABS: INR 1.22 (0.9-1.15); Partial Thromboplastin Time 33.3 SEC (24.5-34.5); Prothrombin Time 12.7 sec (9.3-11.8)
[2025-01-11 10:24] LABS: Urine Blood Negative /uL (Negative); Urine Clarity Clear (Clear); Urine Color Yellow (Yellow); Urine Mucus FEW (None Seen); Urine Protein, UAD Negative (Negative); Urine Specific Gravity 1.022 (1.001-1.035); Urine Squamous Epithelial Cell None Seen /hpf (<5); Urine Urobilinogen Normal (Negative); Urine WBC 1 /HPF (0-3)
[2025-01-11 11:09] LABS: Alanine Aminotransferase 25 U/L (7-40); Albumin 4.3 g/dL (3.2-4.8); Alkaline Phosphatase 63 U/L (46-116); Anion Gap 9 (5-15); BUN/Creatinine Ratio 17.1 (10.0-20.0); Calcium 9.2 mg/dL (8.7-10.4); Carbon Dioxide 25 mmol/L (20-31); Chloride 106 mmol/L (98-107); Glucose 103 mg/dL (74-106); Potassium 4.7 mmol/L (3.5-5.1); Sodium 140 mmol/L (136-145); Total Protein 6.6 g/dL (5.7-8.2)
[2025-01-11 11:10] LABS: Bilirubin, Total 0.8 mg/dL (0.2-1.0)
[2025-01-11 11:17] LABS: Blood Urea Nitrogen 24 mg/dL (9-23)
[2025-01-11 11:36] LABS: Aspartate Aminotransferase 24 U/L (13-40)
== END 2025-01-11 17:00 | disposition home or self-care (01) ==
LOC: LAB 09:28
PROVIDERS: ATTEND Urology
DX: Z01.812 Encounter for preprocedural laboratory examination (principal); Z79.899 Other long term (current) drug therapy; Z79.01 Long term (current) use of anticoagulants
CPT/HCPCS: 36415; 80053; 81001; 85025; 85610; 85730; 87086